=== PATIENT | male | born 1950 | race Caucasian/White ===

== ENCOUNTER 2016-11-03 16:53 | Inpatient (IN) | payer OTHER ==
[2016-11-03 17:07] VITALS: BMI 30.7
[2016-11-03] MEDS ORDERED: dilTIAZem HCL 50 MG/10 ML - 10 ML VIAL ONE ×2 (17:41→18:01)
--- NOTE | 2016-11-03 17:48 | PDOC ---
History of Present Illness - History of Present Illness Initial Comments: 11/03/16 19:00 Patient is a 66 year old male with no known medical hx who is presenting to the ED with several weeks of shortness of breath and dyspnea on exertion. The patient also endorses epigastric pain, orthopnea and leg swelling that began four days ago. Patient denies any other symptoms including fever, chills, chest pain, lightheadedness, palpitations, nausea, vomiting, diarrhea, melena, rectal bleeding, or coughing. <Negar Beltran - Last Filed: 11/03/16 19:00> <Ruben London - Last Filed: 11/03/16 19:57> - General Chief Complaint: Shortness of Breath Stated Complaint: SHORTNESS OF BREATH Time Seen by Provider: 11/03/16 17:35 Past History <Negar Beltran - Last Filed: 11/03/16 19:00> - Past Medical History Anemia: No Asthma: No Cancer: No Cardiac Disorders: No CVA: No COPD: No CHF: No Dementia: No Diabetes: No GI Disorders: No Disorders: No HTN: No Hypercholesterolemia: No Liver Disease: No Seizures: No Thyroid Disease: No Other medical history: DENIES. 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) - Immunization History Td Vaccination: Yes Immunization Up to Date: Yes - Psycho/Social/Smoking Cessation Hx Suicidal Ideation: No Smoking Status: Yes Smoking History: Current every day smoker Have you smoked in the past 12 months: Yes Number of Cigarettes Smoked Daily: 10 Information on smoking cessation initiated: No Hx Alcohol Use: No Drug/Substance Use Hx: No Substance Use Type: None Hx Substance Use Treatment: No <Ruben London - Last Filed: 11/03/16 19:57> - Past Medical History Allergies/Adverse Reactions: Allergies Allergy/AdvReac Type Severity Reaction Status Date / Time Penicillins Allergy Swelling Verified 11/03/16 17:03 Home Medications: Ambulatory Orders NK [No Known Home Medication] 11/03/16 Review of Systems - Review of Systems Comments:: 11/03/16 19:00 CONSTITUTIONAL: No reported: Fever, Chills, Diaphoresis, Generalized Weakness, Malaise, Loss of Appetite HEENT: No reported: Rhinorrhea, Nasal Congestion, Throat Pain, Throat Swelling, Difficulty Swallowing, Mouth Swelling, Ear Pain, Eye Pain, Visual Changes CARDIOVASCULAR: Reported: Lower Extremity Edema No reported: Chest Pain, Syncope, Palpitations, Irregular Heart Rate, Lightheadedness RESPIRATORY: Reported: Shortness of Breath, SOB with Exertion, Orthopnea No reported: Cough, Wheezing, Stridor, Hemoptysis GASTROINTESTINAL: Reported: Epigastric Pain No reported: Abdominal Distension, Nausea, Vomiting, Diarrhea, Constipation, Melena, Hematochezia GENITOURINARY: No reported: Dysuria, Frequency, Urgency, Hesitancy, Flank Pain, Genital Pain MUSCULOSKELETAL: No reported: Myalgia, Arthralgia, Joint Swelling, Back pain, Neck Pain SKIN: No reported: Rash, Itching, Pallor HEMEATOLOGIC/IMMUNOLOGIC: No reported: Easy Bleeding, Easy Bruising, Lymphadenopathy, Frequent infections ENDOCRINE: No reported: Unexplained Weight Gain, Unexplained Weight Loss, Heat Intolerance , Cold Intolerance NEUROLOGIC: No reported: Headache, Focal Weakness, Paresthesias, Vertigo, Lightheadedness, Unsteady Gait, Seizure, Mental Status Changes, Incontinence PSYCHIATRIC: No reported: Anxiety, Depression <Ruby,Negar - Last Filed: 11/03/16 19:00> *Physical Exam - Vital Signs Last Vital Signs Temp Pulse Resp BP Pulse Ox 97.7 F 80 19 131/86 97 11/03/16 17:03 11/03/16 17:03 11/03/16 17:03 11/03/16 17:03 11/03/16 17:03 - Physical Exam Comments: 11/03/16 19:00 GENERAL: The patient is awake, alert, and fully oriented, Nontoxic - in no acute distress. HEAD: Normocephalic, atraumatic. EYES: extraocular movements intact, sclera anicteric, conjunctiva clear. ENT: Normal voice, Moist mucous membranes. NECK: Normal range of motion, supple LUNGS: Diffuse wheezing bilaterally. No rhonchi, no rales. HEART: Tachycardic, rapid irregularly irregular heart rate. No murmur, rub or gallop. ABDOMEN: Soft, nontender, normoactive bowel sounds. No guarding, no rebound.No CVA tenderness EXTREMITIES: Normal range of motion, pitting edema to the lower extremities bilaterally. No clubbing or cyanosis. No cords, erythema, or tenderness. NEUROLOGICAL: No facial assymetry, Normal speech, PSYCH: Normal mood, normal affect. SKIN: Warm, Dry, normal turgor, <Negar Beltran - Last Filed: 11/03/16 19:00> - Vital Signs Last Vital Signs Temp Pulse Resp BP Pulse Ox 97.7 F 80 19 131/86 97 11/03/16 17:03 11/03/16 17:03 11/03/16 17:03 11/03/16 17:03 11/03/16 17:03 <Ruben London - Last Filed: 11/03/16 19:57> Heart Score/ECG Review - ECG Impressions Comment:: 11/03/16 19:55 Twelve-lead EKG was performed and reviewed by me. Irregular, rate of [address] changes suggestive of acute ischemia <Ruben London - Last Filed: 11/03/16 19:57> ED Treatment Course - LABORATORY CBC & Chemistry Diagram: 11/03/16 17:49 11/03/16 18:40 - ADDITIONAL ORDERS Additional order review: Laboratory Results 11/03/16 17:49 INR 1.12 11/03/16 17:49 RBC 4.70 MCV 100.8 H MCHC 33.1 RDW 15.2 MPV 9.2 Neutrophils % 63.9 Lymphocytes % 24.5 Monocytes % 9.2 Eosinophils % 1.3 Basophils % 1.1 <Negar Beltran - Last Filed: 11/03/16 19:00> - LABORATORY CBC & Chemistry Diagram: 11/03/16 17:49 11/03/16 18:40 - RADIOLOGY Radiology Studies Ordered: Category Date Time Status CHEST X-RAY PORTABLE* [RAD] Stat Radiology 11/03/16 17:39 Ordered <Ruben London - Last Filed: 11/03/16 19:57> Medical Decision Making - Medical Decision Making 11/03/16 17:58 66y M no known medical problems presents with sob/espinoza for several weeks, mild epigastric pressure, found to have HR of 155 in triage in rapid afib pt placed in monitoring tech upon arrival, pt given 20mgof diltiizem with improvment of HR to 138, will gie another bolus of 20mg 11/03/16 18:52 case d/w dr. carmichael - pts HR currently rnaging between 110-130, avg around 120, bp 99/69. pt with wheezing and chronic smoking history - ?undiagnosed COPD - concern for usig BB will give PO chaser of dilitazem 30mg PO pts CHADS-2VASC score of 0 - will give ASA, no indication for further AC CRITICAL CARE DOCUMENTATION: I spent ~35 minutes of Critical Care time, excluding separately billable procedures, involving high complexity decision making to assess, manipulate and support vital system function(s) to treat single or multiple vital organ system failure and/or to prevent further life threatening deterioration of the patient' s condition. caes dw dr. duval agreed with telemetry admission for further management of afib Case discussed in detail with admitting physician including history, physical exam and ancillary studies. Admitting physician has assumed care for the patient, will follow all pending diagnostics and will complete the evaluation and treatment. <Ruben London - Last Filed: 11/03/16 19:57> *DC/Admit/Observation/Transfer - Attestations Scribe Attestion: 11/03/16 19:01 Documentation prepared by Negar Beltran, acting as chief medical physicist for Ruben London MD. <Negar Beltran - Last Filed: 11/03/16 19:00> - Discharge Dispostion Admit: Yes <Ruben London - Last Filed: 11/03/16 19:57> Diagnosis at time of Disposition: Atrial fibrillation Qualifiers: Atrial fibrillation type: unspecified Qualified Code(s): I48.91 - Unspecified atrial fibrillation - Discharge Dispostion Condition at time of disposition: Guarded
[2016-11-03 18:03] LABS: BASOPHIL 1.1 % (0-2.0); EOSINOPHIL 1.3 % (0-4.5); MCH 33.4 pg (25.7-33.7); MCHC 33.1 g/dl (32.0-35.9); MEAN CELL VOLUME 100.8 fl (80-96); MEAN PLT VOLUME 9.2 fl (7.5-11.1); NEUTROPHILS 63.9 % (42.8-82.8); PLATELET COUNT 219 K/MM3 (134-434); RDW 15.2 % (11.9-15.9); WHITE BLOOD COUNT 11.2 K/mm3 (4.0-10.0)
[2016-11-03 18:19] LABS: INR 1.12 (0.82-1.09); PROTHROMBIN TIME (PATIENT) 12.3 SEC (9.98-11.88)
[2016-11-03] MEDS ORDERED: dilTIAZem HCL 50 MG/10 ML - 10 ML VIAL IVPUSH ONE ×3 (18:21→23:11)
[2016-11-03] MEDS ORDERED: dilTIAZem HCL 30 MG TABLET (FP) PO ONE (18:50)
[2016-11-03] MEDS ORDERED: ASPIRIN 81 MG CHEWABLE TABLETS PO ONE (18:51)
[2016-11-03 18:55] LABS: ALBUMIN 3.6 g/dl (3.4-5.0); ANION GAP 10 (8-16); BILIRUBIN,TOTAL 0.8 mg/dL (0.2-1.0); CALCIUM 8.8 mg/dL (8.5-10.1); CO2 26 mmol/L (21-32); CREATININE 0.8 mg/dL (0.7-1.3); GLUCOSE,RANDOM 95 mg/dL (74-106); SGOT/AST 38 U/L (15-37); SGPT/ALT 67 U/L (12-78); TOT PROT 6.2 g/dl (6.4-8.2)
[2016-11-03 18:58] LABS: ALK PHOS 65 U/L (45-117); TROPONIN I 0.02 ng/ml (0.00-0.05)
[2016-11-03] MEDS ORDERED: dilTIAZem HCL 30 MG TABLET (FP) ONE ×2 (19:14→22:34)
[2016-11-03] MEDS ORDERED: ASPIRIN 81 MG CHEWABLE TABLETS ONE (19:14)
--- NOTE | 2016-11-03 21:05 | HP ---
CHIEF COMPLAINT: SOB PCP: No PCP HISTORY OF PRESENT ILLNESS: 66 y/o M w/no PMH presents to ER with c/o exertional dyspnea over last few weeks. Pt states he has trouble walking even 40 feet and this is the first time this has happened. He also has difficulty laying flat over the last few weeks and sleeps at about a 45 degree angle. He also developed a cough with yellow/ whitish sputum production over the last few weeks but attributed to sick contacts (his boss and a co-worker were sick). The symptoms have stayed the same over the last few weeks and haven't worsened or improved. Over the last 4 days he has also noted some epigastric pain and leg swelling. He denies any CP , N/V/F/C, palpitations, heart racing, light-headedness, dizziness, diarrhea, constipation, dysuria, acute change in vision, or diplopia. He had a pre-op visit in April 2016 (w/Dr. Delgado) for L shoulder rotator cuff repair and had an EKG done at that time at which point he was not told of any heart rhythm abnormalities. He does not follow with any doctors otherwise. ER course was notable for: (1) IV diltiazem, PO diltiazem, EKG, ASA (2) (3) PAST MEDICAL HISTORY: no PMH PAST SURGICAL HISTORY: L rotator cuff repari 05/2016 Social History: Smoking: daily, 10 cigarettes per day at this time but has smoked more in the past Alcohol: denies Drugs: denies Family History: Father - cardiac stent placed at age 89, still alive Allergies Penicillins Allergy (Verified 11/03/16 17:03) Swelling HOME MEDICATIONS: Home Medications Medication Instructions Recorded NK [No Known Home Medication] 11/03/16 REVIEW OF SYSTEMS CONSTITUTIONAL: Absent: fever, chills, diaphoresis, generalized weakness, malaise, loss of appetite, weight change HEENT: Absent: rhinorrhea, nasal congestion, throat pain, throat swelling, difficulty swallowing, mouth swelling, ear pain, eye pain, visual changes CARDIOVASCULAR: Absent: chest pain, syncope, palpitations, irregular heart rate, lightheadedness , peripheral edema RESPIRATORY: dyspnea on exertion, orthopnea, cough Absent: shortness of breath, wheezing, stridor, hemoptysis GASTROINTESTINAL: abd pain Absent: abdominal pain, abdominal distension, nausea, vomiting, diarrhea, constipation, melena, hematochezia GENITOURINARY: Absent: dysuria, frequency, urgency, hesitancy, hematuria, flank pain, genital pain MUSCULOSKELETAL: Absent: myalgia, arthralgia, joint swelling, back pain, neck pain SKIN: Absent: rash, itching, pallor HEMATOLOGIC/IMMUNOLOGIC: Absent: easy bleeding, easy bruising, lymphadenopathy, frequent infections ENDOCRINE: Absent: unexplained weight gain, unexplained weight loss, heat intolerance, cold intolerance NEUROLOGIC: Absent: headache, focal weakness or paresthesias, dizziness, unsteady gait, seizure, mental status changes, bladder or bowel incontinence PSYCHIATRIC: Absent: anxiety, depression, suicidal or homicidal ideation, hallucinations. PHYSICAL EXAMINATION GENERAL: Awake, alert, and fully oriented, in no acute distress. HEAD: Normal with no signs of trauma. EYES: extraocular movements intact, sclera anicteric, conjunctiva clear. No lid lag. EARS, NOSE, THROAT: Ears normal, nares patent, oropharynx clear without exudates. Moist mucous membranes. NECK: Normal range of motion LUNGS: L base mild wheezing. R base diminished breath sounds. HEART: Tachycardic, irregularly irregular, no murmurs appreciated. ABDOMEN: Soft, nontender, not distended, normoactive bowel sounds, no guarding, no rebound, no masses. No hepatomegaly or splenomegaly. MUSCULOSKELETAL: Normal range of motion at all joints. No bony deformities or tenderness. UPPER EXTREMITIES: 2+ pulses, warm, well-perfused. No cyanosis. No clubbing. Trace pitting edema. LOWER EXTREMITIES: 2+ pulses, warm, well-perfused. No calf tenderness. 2+ pitting edema. NEUROLOGICAL: Normal speech. Gait not observed. PSYCHIATRIC: Cooperative. Good eye contact. Appropriate mood and affect. SKIN: Warm, dry, normal turgor, no rashes or lesions noted, normal capillary refill. CBCD WBC 8.6 K/mm3 (4.0-10.0) 11/04/16 00:50 RBC 4.31 M/mm3 (4.00-5.60) 11/04/16 00:50 Hgb 14.4 GM/dL (11.7-16.9) 11/04/16 00:50 Hct 43.1 % (35.4-49) 11/04/16 00:50 MCV 100.1 fl (80-96) H 11/04/16 00:50 MCHC 33.3 g/dl (32.0-35.9) 11/04/16 00:50 RDW 15.2 % (11.9-15.9) 11/04/16 00:50 Plt Count 180 K/MM3 (134-434) 11/04/16 00:50 MPV 9.2 fl (7.5-11.1) 11/04/16 00:50 CMP Sodium 140 mmol/L (136-145) 11/03/16 18:40 Potassium 4.6 mmol/L (3.5-5.1) 11/03/16 18:40 Chloride 104 mmol/L (98-107) 11/03/16 18:40 Carbon Dioxide 26 mmol/L (21-32) 11/03/16 18:40 Anion Gap 10 (8-16) 11/03/16 18:40 BUN 17 mg/dL (7-18) 11/03/16 18:40 Creatinine 0.8 mg/dL (0.7-1.3) 11/03/16 18:40 Creat Clearance w eGFR > 60 (>60) 11/03/16 18:40 Random Glucose 95 mg/dL (74-106) 11/03/16 18:40 Calcium 8.8 mg/dL (8.5-10.1) 11/03/16 18:40 Total Bilirubin 0.8 mg/dL (0.2-1.0) 11/03/16 18:40 AST 38 U/L (15-37) H 11/03/16 18:40 ALT 67 U/L (12-78) 11/03/16 18:40 Alkaline Phosphatase 65 U/L (45-117) 11/03/16 18:40 Total Protein 6.2 g/dl (6.4-8.2) L 11/03/16 18:40 Albumin 3.6 g/dl (3.4-5.0) 11/03/16 18:40 CARDIAC ENZYMES Creatine Kinase 121 IU/L (39-308) 11/03/16 18:40 Troponin I 0.02 ng/ml (0.00-0.05) 11/03/16 18:40 Urine Test Results Urine Color Dkyellow 11/03/16 22:37 Urine Appearance Clear 11/03/16 22:37 Urine pH 5.0 (5.0-8.0) 11/03/16 22:37 Ur Specific [place] 1.027 (1.001-1.035) 11/03/16 22:37 Urine Protein 1+ (NEGATIVE) H 11/03/16 22:37 Urine Glucose (UA) Negative (NEGATIVE) 11/03/16 22:37 Urine Ketones Negative (NEGATIVE) 11/03/16 22:37 Urine Blood Negative (NEGATIVE) 11/03/16 22:37 Urine Nitrite Negative (NEGATIVE) 11/03/16 22:37 Urine Bilirubin Negative (NEGATIVE) 11/03/16 22:37 Ur Leukocyte Esterase Negative (NEGATIVE) 11/03/16 22:37 Urine RBC 5 /hpf (0-3) 11/03/16 22:37 Urine WBC 1 /hpf (3-5) 11/03/16 22:37 Ur Epithelial Cells Rare /hpf (FEW) 11/03/16 22:37 Urine Mucus Moderate 11/03/16 22:37 Imaging: CXR: R costophrenic angle blunted, possible pleural effusion. L costophrenic angle mildly blunted. Fullness in hilum. EKG: A-fib @ 155 bpm, no st segment changes noted. Active Medications Diltiazem HCl (Cardizem -) 30 mg PO QID [facility] Last Admin: 11/03/16 22:35 Dose: 30 mg Heparin Sodium (Porcine) (Heparin -) 1,000 unit IVPUSH PRN PRN PRN Reason: Heparin Heparin Sodium (Porcine) (Heparin -) 5,000 unit IVPUSH PRN PRN PRN Reason: Heparin Heparin Sodium/Dextrose (Heparin Infusion -) 500 mls @ 20 mls/hr IVPB TITR RY ; 1,000 UNITS/HR PRN Reason: Protocol Last Admin: 11/04/16 01:40 Dose: 20 mls/hr Metoprolol Tartrate (Lopressor -) 25 mg PO BID [facility] Last Admin: 11/04/16 00:34 Dose: 25 mg Metoprolol Tartrate (Lopressor Injection -) 5 mg IVPUSH Q4H PRN PRN Reason: HYPERTENSION ASSESSMENT/PLAN: 66 y/o M w/no PMH presents to ER with c/o exertional dyspnea over last few weeks. Admitted to [facility] for new onset a-fib. -New onset a-fib w/RVR -ASA given in ER, diltiazem 20mg IV x2 + diltiazem 30 mg po given in ER + given 30 mg po and 20 mg IV after being brought up to tele. -Cardizem 30 mg PO qid -Metoprolol 25 mg po bid, lopressor 5mg ivp q4h prn as per cardio -heparin drip as per cardio -Cardio Consulted -Echo ordered, f/u EKG in AM -[id number] score 0; TSH wnl -Previous EKG on 05/06/2016 showed: SINUS HUY w/SINUS ARRHYTHMIA, POSSIBLE L ATRIAL ENLARGEMENT -Wheezing and cough secondary to CHF vs COPD -CXR shows congestive changes and r pleural effusion -Lasix 20mg IV once ordered -f/u ECHO -DVT ppx -on heparin drip -FEN -No fluids -electrolytes wnl -cardiac diet Problem List - Problem (1) Atrial fibrillation Code(s): I48.91 - UNSPECIFIED ATRIAL FIBRILLATION Qualifiers: Atrial fibrillation type: unspecified Qualified Code(s): I48.91 - Unspecified atrial fibrillation Visit type - Emergency Visit Emergency Visit: Yes ED Registration Date: 11/03/16 Care time: The patient presented to the Emergency Department on the above date and was hospitalized for further evaluation of their emergent condition. - New Patient This patient is new to me today: Yes Date on this admission: 11/04/16 - Critical Care Critical Care patient: No
[2016-11-03] MEDS ORDERED: FUROSEMIDE 40 MG/4 ML INJECTABLE VIAL IVPB ONE (21:22)
[2016-11-03] MEDS ORDERED: FUROSEMIDE 40 MG/4 ML INJECTABLE VIAL ONE (21:51)
[2016-11-03] MEDS: dilTIAZem HCL 30 MG TABLET (FP) PO SCH (22:35)
[2016-11-03 23:20] LABS: URINE APPEARANCE CLEAR; URINE BILIRUBIN NEGATIVE (NEGATIVE); URINE BLOOD NEGATIVE (NEGATIVE); URINE COLOR DKYELLOW; URINE GLUCOSE (UA) NEGATIVE (NEGATIVE); URINE KETONE NEGATIVE (NEGATIVE); URINE LEUK ESTERASE NEGATIVE (NEGATIVE); URINE NITRITE NEGATIVE (NEGATIVE); URINE UROBILINOGEN 2.0 E.U/dl E.U./dl (0.2-1.0)
[2016-11-03 23:21] LABS: URINE PROTEIN 1+ (NEGATIVE)
[2016-11-03 23:23] LABS: CALCIUM OXALATE CRYSTALS FEW /hpf (NONE SEEN); URINE HYALINE CAST 3 /lpf; URINE MUCUS MODERATE; URINE RBC 5 /hpf (0-3); URINE WBC 1 /hpf (3-5)
--- NOTE | 2016-11-03 23:51 | PN ---
<Marko Green - Last Filed: 11/04/16 02:44> Teaching Attending Note ATTENDING PHYSICIAN STATEMENT I saw and evaluated the patient. I reviewed the resident's note and discussed the case with the resident. I agree with the resident's findings and plan as documented. SUBJECTIVE: The patient is a 66 year old male with no known medical history who presented to the Emergency Department with several weeks of dyspnea on exertion. The patient reported that he is unable to walk 40 feet without becoming short of breath. The patient endorsed associated epigastric pain, bilateral lower extremity edema for 4 days, and orthopnea, productive cough with yellow-clear sputum for several weeks. The patient works as a communication equipment mechanic and noted that he has had recent sick contacts at his workplace. Patient denied fever, chills, chest pain, lightheadedness, dizziness, palpitations, nausea, vomiting, diarrhea, constipation, acute changes in vision or any other symptoms at this time. The patient noted that he has had a normal appetite as well as normal bowel movements. He does not have a PCP but most recently saw Dr. Delgado for a pre- operative appointment. PAST MEDICAL HISTORY: No significant history reported PAST SURGICAL HISTORY: Shoulder surgery 05/2016 FAMILY HISTORY: Father s/p stent at age 89. Mother from cancer SOCIAL HISTORY: Current smoker 0.5 ppd (over 45 years). Former drinker (quit 15 years ago) MEDICATIONS: Reviewed ALLERGIES: As per nursing notes OBJECTIVE: Vital Signs: Last Vital Signs Temp Pulse Resp BP Pulse Ox 98.1 F 135 H 20 106/62 96 11/03/16 23:42 11/04/16 00:40 11/04/16 00:40 11/04/16 00:40 11/03/16 23:42 Physical Exam: GENERAL: Awake, alert, and fully oriented, in no acute distress HEENT: Atraumatic. PERRLA, EOMI. Moist mucosa. No JVD LUNGS: (+) Breath sounds diminished, bilateral wheezing. speaks full sentences, HEART: (+) Irregular rhythm, tachycardia. Normal S1 and S2, no murmurs, rubs or gallops, peripheral pulses normal and equal bilaterally. ABDOMEN: Soft, nontender, normoactive bowel sounds. No guarding, no rebound. No masses EXTREMITIES: (+) Legs 2+ pitting edema up to knees trace pitting edema upper extremities. Normal inspection, Normal range of motion, No clubbing or cyanosis. NEUROLOGICAL: Cranial nerves II through XII grossly intact. Normal speech, normal gait, no focal sensorimotor deficits SKIN: Warm, Dry, normal turgor, no rashes or lesions noted. Labs: CBCD WBC 8.6 K/mm3 (4.0-10.0) 11/04/16 00:50 RBC 4.31 M/mm3 (4.00-5.60) 11/04/16 00:50 Hgb 14.4 GM/dL (11.7-16.9) 11/04/16 00:50 Hct 43.1 % (35.4-49) 11/04/16 00:50 MCV 100.1 fl (80-96) H 11/04/16 00:50 MCHC 33.3 g/dl (32.0-35.9) 11/04/16 00:50 RDW 15.2 % (11.9-15.9) 11/04/16 00:50 Plt Count 180 K/MM3 (134-434) 11/04/16 00:50 MPV 9.2 fl (7.5-11.1) 11/04/16 00:50 CMP Sodium 140 mmol/L (136-145) 11/03/16 18:40 Potassium 4.6 mmol/L (3.5-5.1) 11/03/16 18:40 Chloride 104 mmol/L (98-107) 11/03/16 18:40 Carbon Dioxide 26 mmol/L (21-32) 11/03/16 18:40 Anion Gap 10 (8-16) 11/03/16 18:40 BUN 17 mg/dL (7-18) 11/03/16 18:40 Creatinine 0.8 mg/dL (0.7-1.3) 11/03/16 18:40 Creat Clearance w eGFR > 60 (>60) 11/03/16 18:40 Calcium 8.8 mg/dL (8.5-10.1) 11/03/16 18:40 Total Bilirubin 0.8 mg/dL (0.2-1.0) 11/03/16 18:40 AST 38 U/L (15-37) H 11/03/16 18:40 ALT 67 U/L (12-78) 11/03/16 18:40 Alkaline Phosphatase 65 U/L (45-117) 11/03/16 18:40 Total Protein 6.2 g/dl (6.4-8.2) L 11/03/16 18:40 Albumin 3.6 g/dl (3.4-5.0) 11/03/16 18:40 Imaging: Chest X-ray Impression: No official read. Vascular congestion and possible small effusions. ASSESSMENT AND PLAN : The patient is a 66 year old male with no known medical history who presented to the Emergency Department with several weeks of dyspnea on exertion. 1. New onset AFIB with RVR -Diltiazem (given 20 mg IV x2 and 30 mg PO in ED) -Diltiazem start 30 mg PO x4 daily -CHADS2 VASC0 Aspirin given in ER, continue 81 mg per day -Serial troponins -ECHO -Cardiology consult 2. Possible Acute diastolic heart failure -Lasix 20mg IV x1 -Chest X-ray in AM -ECHO -Rate control Admit to tele. Documentation prepared by Marko Green, acting as medical attendant for Dr. Kody Moise MD. <Kody Moise - Last Filed: 11/04/16 02:59> Teaching Attending Note Name of Resident: Jose Rodriguez ATTENDING PHYSICIAN STATEMENT I saw and evaluated the patient. I reviewed the resident's note and discussed the case with the resident. I agree with the resident's findings and plan as documented.
--- NOTE | 2016-11-04 00:15 | CON.CARD ---
Consult Consult Specialty:: cardiology Reason for Consultation:: new-onset AF - History of Present Illness History of Present Illness: Patient is a 66 year old male with no known medical hx who is presenting to the ED with several weeks of shortness of breath, productive cough, and dyspnea on exertion. The patient also endorses epigastric pain, orthopnea and leg swelling that began four days ago. Patient denies any other symptoms including fever, chills, chest pain, lightheadedness, palpitations, nausea, vomiting, diarrhea, melena, or rectal bleed. - History Source History Provided By: Patient, Medical Record Limitations to Obtaining History: No Limitations - Past Medical History Cardio/Vascular: Yes: AFIB, CHF (systolic) Renal/: No: Renal Failure - Past Surgical History Additional Surgical History: right leg calf wound when young; + scar - Alcohol/Substance Use Hx Alcohol Use: No - Smoking History Smoking history: Current every day smoker Have you smoked in the past 12 months: Yes Aproximately how many cigarettes per day: 10 Home Medications - Allergies Allergies/Adverse Reactions: Allergies Allergy/AdvReac Type Severity Reaction Status Date / Time Penicillins Allergy Swelling Verified 11/03/16 17:03 - Home Medications Home Medications: Ambulatory Orders NK [No Known Home Medication] 11/03/16 Family Disease History - Family Disease History Family History: Denies Review of Systems - Review of Systems Eyes: reports: No Symptoms HENT: reports: No Symptoms Neck: reports: No Symptoms Cardiovascular: reports: No Symptoms Respiratory: reports: SOB on Exertion Musculoskeletal: reports: Muscle Weakness Neurological: reports: No Symptoms Psychiatric: reports: No Symptoms - Risk Factors Known Risk Factors: Yes: Age, Gender, Physical Inactivity, Smoking, Other ( severe systolic CHF) Vital Signs: Vital Signs Temperature 98.1 F 11/03/16 23:42 Pulse Rate 150 H 11/03/16 23:42 Respiratory Rate 18 11/03/16 23:42 Blood Pressure 117/68 11/03/16 23:42 O2 Sat by Pulse Oximetry (%) 96 11/03/16 23:42 Constitutional: Yes: No Distress Eyes: Yes: WNL HENT: Yes: WNL Neck: Yes: WNL Respiratory: Yes: Regular Gastrointestinal: Yes: Soft Renal/: No: Anuria Cardiovascular: Yes: Tachycardia, Pulse Irregular JVD: No Carotid Bruit: No PMI: Displaced Heart Sounds: Yes: S1 (changes in intensity) Murmur: Yes: Grade 2 Musculoskeletal: Yes: Muscle Weakness Extremities: Yes: Cool Edema: Yes Edema: LLE: 2+, RLE: 2+ Peripheral Pulses WNL: Yes Integumentary: Yes: WNL Neurological: Yes: WNL Psychiatric: Yes: WNL - Other Data Labs, Other Data: INR, PTT INR 1.12 (0.82-1.09) 11/03/16 17:49 Echo: Pending Imaging - Results Chest X-ray: Image Reviewed (no acute pathology) EKG: Image Reviewed (AF with RVR) Problem List - Problems (1) Atrial fibrillation Assessment/Plan: Pt has received a total of 60 mg diltiazem IVP and 60 mg diltiazem PO over the past several hours. HR now fluctuates from high 90s to 150+ bpm with virtually no exertion. Will start metoprolol tartrate PO 25 mg bid, and metoprolol 5 mg IVP prn (no hx bronchial asthma). Start heparin IV per protocol. Discontinue ASA (increased bleeding potential with heparin) until more history regarding cardiac risks is obtained. ECHO for LVEF, chamber sizes, valve status. Serial TNI (initial is < 0.02). TSH WNL. Telemetry; EKG in am. Code(s): I48.91 - UNSPECIFIED ATRIAL FIBRILLATION Qualifiers: Atrial fibrillation type: unspecified Qualified Code(s): I48.91 - Unspecified atrial fibrillation
[2016-11-04] MEDS ORDERED: METOPROLOL TARTRATE 5 MG/5 ML VIAL IVPUSH PRN (00:17)
[2016-11-04] MEDS ORDERED: HEPARIN NA (PORCINE) 5,000 UNITS/ML 1ML VIAL SQ ONE (00:30)
[2016-11-04] MEDS ORDERED: HEPARIN NA (PORCINE) 5,000 UNITS/ML 1ML VIAL IVPUSH PRN ×2 (00:33)
[2016-11-04] MEDS: METOPROLOL TARTRATE 25 MG TABLET (FP) PO SCH ×4 (00:34→21:45)
[2016-11-04 01:16] LABS: MCH 33.3 pg (25.7-33.7); MCHC 33.3 g/dl (32.0-35.9); MEAN CELL VOLUME 100.1 fl (80-96); MEAN PLT VOLUME 9.2 fl (7.5-11.1); PLATELET COUNT 180 K/MM3 (134-434); RDW 15.2 % (11.9-15.9); WHITE BLOOD COUNT 8.6 K/mm3 (4.0-10.0)
[2016-11-04] MEDS: HEPARIN INFUSION - 500 ML IVPB SCH (01:40)
[2016-11-04 01:51] LABS: INR 1.13 (0.82-1.09); PROTHROMBIN TIME (PATIENT) 12.5 SEC (9.98-11.88)
[2016-11-04 01:54] LABS: ACTIVATED PTT 31.2 SECONDS (26.9-34.4)
[2016-11-04 08:14] LABS: MCH 33.5 pg (25.7-33.7); MCHC 33.2 g/dl (32.0-35.9); MEAN CELL VOLUME 101.2 fl (80-96); MEAN PLT VOLUME 9.1 fl (7.5-11.1); PLATELET COUNT 184 K/MM3 (134-434); RDW 15.3 % (11.9-15.9); WHITE BLOOD COUNT 8.1 K/mm3 (4.0-10.0)
[2016-11-04 08:32] LABS: INR 1.12 (0.82-1.09); PROTHROMBIN TIME (PATIENT) 12.3 SEC (9.98-11.88)
[2016-11-04 08:33] LABS: MAGNESIUM 2.2 mg/dL (1.8-2.4)
[2016-11-04 08:35] LABS: ACTIVATED PTT 62.2 SECONDS (26.9-34.4)
[2016-11-04] MEDS: dilTIAZem HCL 30 MG TABLET (FP) PO SCH (09:20)
--- NOTE | 2016-11-04 09:26 | PN ---
Physical Exam: SUBJECTIVE: Patient seen and examined on tele. He denies SOB or palpitations at this time. He has in intermittent dry cough. Events: - HR improved, however uncontrolled; fluctuating - Metoprolol 5mg x1 this AM - Period of hypotension this AM per RN OBJECTIVE: Vital Signs Period Temp Pulse Resp BP Sys/Mccray Pulse Ox Last 24 Hr 97.6 F-98.1 F 74-150 18-20 102-117/53-86 96-98 PE Neuro: alert, awake, cn 2-12intact Pulm: R base crackles diminished, left clear, + NC CV: s1 s2 irregular rate and rhythm Abd: s nt nd + bs Ext: + 2 pitting edema, warm CBCD WBC 8.1 K/mm3 (4.0-10.0) 11/04/16 05:35 RBC 4.37 M/mm3 (4.00-5.60) 11/04/16 05:35 Hgb 14.7 GM/dL (11.7-16.9) 11/04/16 05:35 Hct 44.2 % (35.4-49) 11/04/16 05:35 MCV 101.2 fl (80-96) H 11/04/16 05:35 MCHC 33.2 g/dl (32.0-35.9) 11/04/16 05:35 RDW 15.3 % (11.9-15.9) 11/04/16 05:35 Plt Count 184 K/MM3 (134-434) 11/04/16 05:35 MPV 9.1 fl (7.5-11.1) 11/04/16 05:35 CMP Sodium 142 mmol/L (136-145) 11/04/16 05:35 Potassium 4.8 mmol/L (3.5-5.1) 11/04/16 05:35 Chloride 104 mmol/L (98-107) 11/04/16 05:35 Carbon Dioxide 29 mmol/L (21-32) 11/04/16 05:35 Anion Gap 9 (8-16) 11/04/16 05:35 BUN 19 mg/dL (7-18) H 11/04/16 05:35 Creatinine 1.0 mg/dL (0.7-1.3) D 11/04/16 05:35 Creat Clearance w eGFR > 60 (>60) 11/03/16 18:40 Calcium 9.0 mg/dL (8.5-10.1) 11/04/16 05:35 Total Bilirubin 0.8 mg/dL (0.2-1.0) 11/03/16 18:40 AST 38 U/L (15-37) H 11/03/16 18:40 ALT 67 U/L (12-78) 11/03/16 18:40 Alkaline Phosphatase 65 U/L (45-117) 11/03/16 18:40 Total Protein 6.2 g/dl (6.4-8.2) L 11/03/16 18:40 Albumin 3.6 g/dl (3.4-5.0) 11/03/16 18:40 11/03/16 11/04/16 11/04/16 17:49 00:50 05:35 INR PTT (Actin FS) Troponin I 0.02 < 0.02 Triglycerides Cholesterol Total LDL Cholesterol HDL Cholesterol TSH 1.83 11/04/16 11/04/16 05:35 07:21 INR 1.12 PTT (Actin FS) 62.2 H D Troponin I Triglycerides 74 Cholesterol 145 Total LDL Cholesterol 93 HDL Cholesterol 46 TSH Active Medications Generic Name Dose Route Start Last Admin Trade Name Freq PRN Reason Stop Dose Admin Diltiazem HCl 30 mg 11/03/16 22:00 11/03/16 22:35 Cardizem - PO 30 mg QID RY Administration Heparin Sodium (Porcine) 1,000 unit 11/04/16 00:33 Heparin - IVPUSH PRN PRN Heparin Heparin Sodium (Porcine) 5,000 unit 11/04/16 00:33 Heparin - IVPUSH PRN PRN Heparin Heparin Sodium/Dextrose 500 mls @ 20 mls/hr 11/04/16 00:45 11/04/16 01:40 Heparin Infusion - IVPB 20 mls/hr TITR RY Administration Protocol 1,000 UNITS/HR Metoprolol Tartrate 25 mg 11/04/16 00:30 11/04/16 08:19 Lopressor - PO 25 mg BID RY Administration Metoprolol Tartrate 5 mg 11/04/16 00:17 11/04/16 06:45 Lopressor Injection - IVPUSH 5 mg Q4H PRN Administration HYPERTENSION Assessment: 66 year old male with no known medical history admitted with several weeks of dyspnea on exertion found to have new onset A fib w/ RVR. 1. New onset AFIB with RVR - r/o SD; serial trops negative - ECHO today - Continue Metoprolol 25mg BID, 5mg IVP prn - Continue diltiazem 30mg PO q4h - Heparin gtt - Hgb a1c in AM - Cardiology following 2. Possible Acute diastolic heart failure - CXR with R base effusion/infiltrate - No infectious signs at this time - Incentive spirometry - ECHO today - Meds as above 3. DVT - heparin gtt - PT Visit type - Emergency Visit Emergency Visit: Yes ED Registration Date: 11/03/16 Care time: The patient presented to the Emergency Department on the above date and was hospitalized for further evaluation of their emergent condition. - New Patient This patient is new to me today: Yes Date on this admission: 11/04/16 - Critical Care Critical Care patient: No
[2016-11-04] MEDS ORDERED: ASPIRIN COATED 81 MG TABLET.EC PO SCH (10:00)
--- NOTE | 2016-11-04 11:20 | EKG ---
Test Reason : Blood Pressure : / mmHG Vent. Rate : 155 BPM Atrial Rate : 147 BPM P-R Int : 000 ms QRS Dur : 088 ms QT Int : 252 ms P-R-T Axes : 000 017 074 degrees QTc Int : 404 ms ATRIAL FIBRILLATION WITH RAPID VENTRICULAR RESPONSE NONSPECIFIC T WAVE ABNORMALITY ABNORMAL ECG WHEN COMPARED WITH ECG OF 07-JUL-2004 20:30, ATRIAL FIBRILLATION HAS REPLACED SINUS RHYTHM VENT. RATE HAS INCREASED BY 96 BPM NON-SPECIFIC CHANGE IN ST SEGMENT IN LATERAL LEADS NONSPECIFIC T WAVE ABNORMALITY NOW EVIDENT IN ANTEROLATERAL LEADS Confirmed by OCHOA ALBRIGHT, JOSE ELIAS ([id number]) on 11/04/2016 11:19:51 AM Referred By: Confirmed By:JOSE ELIAS PACKER MD
--- NOTE | 2016-11-04 11:35 | PN ---
Progress Note, Physician History of Present Illness: Patient is a 66 year old male with no known medical hx who is presenting to the ED with several weeks of shortness of breath, productive cough, and dyspnea on exertion. The patient also endorses epigastric pain, orthopnea and leg swelling that began four days ago. Patient denies any other symptoms including fever, chills, chest pain, lightheadedness, palpitations, nausea, vomiting, diarrhea, melena, or rectal bleed. - Current Medication List Current Medications: Active Medications Diltiazem HCl (Cardizem -) 30 mg PO QID [facility] Last Admin: 11/04/16 09:20 Dose: 30 mg Heparin Sodium (Porcine) (Heparin -) 1,000 unit IVPUSH PRN PRN PRN Reason: Heparin Heparin Sodium (Porcine) (Heparin -) 5,000 unit IVPUSH PRN PRN PRN Reason: Heparin Heparin Sodium/Dextrose (Heparin Infusion -) 500 mls @ 20 mls/hr IVPB TITR RY ; 1,000 UNITS/HR PRN Reason: Protocol Last Admin: 11/04/16 01:40 Dose: 20 mls/hr Metoprolol Tartrate (Lopressor -) 25 mg PO BID RY Last Admin: 11/04/16 08:19 Dose: 25 mg Metoprolol Tartrate (Lopressor Injection -) 5 mg IVPUSH Q4H PRN PRN Reason: HYPERTENSION Last Admin: 11/04/16 06:45 Dose: 5 mg - Objective Vital Signs: Vital Signs Temperature 97.7 F 11/04/16 06:00 Pulse Rate 128 H 11/04/16 06:45 Respiratory Rate 20 11/04/16 06:00 Blood Pressure 110/53 11/04/16 06:45 O2 Sat by Pulse Oximetry (%) 96 11/03/16 23:42 Eyes: Yes: WNL, Conjunctiva Clear, EOM Intact HENT: Yes: WNL, Atraumatic, Normocephalic Neck: Yes: WNL, Supple, Trachea Midline Cardiovascular: Yes: Pulse Irregular Respiratory: Yes: WNL, Regular, CTA Bilaterally Gastrointestinal: Yes: WNL, Normal Bowel Sounds Genitourinary: Yes: WNL Musculoskeletal: Yes: WNL Extremities: Yes: WNL Edema: No Integumentary: Yes: WNL Neurological: Yes: WNL, Alert, Oriented ...Motor Strength: WNL Psychiatric: Yes: WNL Labs: CBC, BMP 11/04/16 05:35 11/04/16 05:35 INR, PTT INR 1.12 (0.82-1.09) 11/04/16 07:21 Problem List - Problems (1) Atrial fibrillation Code(s): I48.91 - UNSPECIFIED ATRIAL FIBRILLATION Qualifiers: Atrial fibrillation type: unspecified Qualified Code(s): I48.91 - Unspecified atrial fibrillation Assessment/Plan af rvr r/o chf ? etoh abuse Plan increase cardizem to 60 q 6 h cont metoprolol cont ac echo pending
--- NOTE | 2016-11-04 13:27 | EKG ---
Test Reason : Blood Pressure : / mmHG Vent. Rate : 145 BPM Atrial Rate : 312 BPM P-R Int : 000 ms QRS Dur : 090 ms QT Int : 316 ms P-R-T Axes : 000 032 112 degrees QTc Int : 490 ms ATRIAL FIBRILLATION WITH RAPID VENTRICULAR RESPONSE NONSPECIFIC T WAVE ABNORMALITY ABNORMAL ECG WHEN COMPARED WITH ECG OF 03-NOV-2016 17:18, NO SIGNIFICANT CHANGE WAS FOUND Confirmed by OCHOA ALBRIGHT, JOSE ELIAS ([id number]) on 11/04/2016 1:27:35 PM Referred By: Cindi REED Confirmed By:JOSE ELIAS PACKER MD
[2016-11-04] MEDS: dilTIAZem HCL 60 MG TABLET (FP) PO SCH ×3 (13:39→21:45)
[2016-11-04] MEDS ORDERED: FUROSEMIDE 40 MG/4 ML INJECTABLE VIAL IVPB ONE (15:37)
[2016-11-04] MEDS ORDERED: DIGOXIN 0.5 MG/2 ML AMPUL IVPUSH ONE (15:45)
[2016-11-05 08:55] LABS: CALCIUM 8.7 mg/dL (8.5-10.1)
[2016-11-05] MEDS: dilTIAZem HCL 60 MG TABLET (FP) PO SCH (09:49)
[2016-11-05] MEDS: METOPROLOL TARTRATE 25 MG TABLET (FP) PO SCH ×2 (09:50→23:06)
[2016-11-05] MEDS: HEPARIN INFUSION - 500 ML IVPB SCH (09:51)
--- NOTE | 2016-11-05 12:52 | PN ---
Progress Note, Physician Chief Complaint: sitting up in bed; no dypnea or chest pain; occasional cough History of Present Illness: Patient is a 66 year old white male, long-term cigarette smoker, who is presenting to the ED with several weeks of shortness of breath, productive cough , and dyspnea on exertion. The patient also endorses epigastric pain, orthopnea and leg swelling that began four days ago. Patient denies any other symptoms including fever, chills, chest pain, lightheadedness, palpitations, nausea, vomiting, diarrhea, melena, or rectal bleed. - Current Medication List Current Medications: Active Medications Digoxin (Lanoxin -) 0.25 mg PO Q6HPO RY Stop: 11/06/16 06:01 Heparin Sodium (Porcine) (Heparin -) 1,000 unit IVPUSH PRN PRN PRN Reason: Heparin Heparin Sodium (Porcine) (Heparin -) 5,000 unit IVPUSH PRN PRN PRN Reason: Heparin Heparin Sodium/Dextrose (Heparin Infusion -) 500 mls @ 20 mls/hr IVPB TITR RY ; 1,000 UNITS/HR PRN Reason: Protocol Last Admin: 11/05/16 09:51 Dose: 20 mls/hr Metoprolol Tartrate (Lopressor -) 25 mg PO BID RY Last Admin: 11/05/16 09:50 Dose: 25 mg Metoprolol Tartrate (Lopressor Injection -) 5 mg IVPUSH Q4H PRN PRN Reason: HYPERTENSION Last Admin: 11/04/16 06:45 Dose: 5 mg - Objective Vital Signs: Vital Signs Temperature 97.7 F 11/05/16 06:00 Pulse Rate 77 11/05/16 06:00 Respiratory Rate 20 11/05/16 06:00 Blood Pressure 109/57 11/05/16 06:00 O2 Sat by Pulse Oximetry (%) 98 11/04/16 21:00 Constitutional: Yes: Calm Eyes: Yes: WNL HENT: Yes: WNL Neck: Yes: WNL Cardiovascular: Yes: Tachycardia, Pulse Irregular Respiratory: Yes: Diminished (ribht base) Gastrointestinal: Yes: Soft ...Rectal Exam: Yes: Deferred Genitourinary: No: Anuria Breast(s): Yes: WNL Musculoskeletal: Yes: Muscle Weakness Extremities: Yes: Cool Edema: Yes Edema: LLE: 1+, RLE: 1+ Peripheral Pulses WNL: Yes Integumentary: Yes: Venous Stasis Changes, Other (right LE scar) Neurological: Yes: WNL Psychiatric: Yes: WNL Labs: CBC, BMP 11/04/16 05:35 11/05/16 05:50 INR, PTT INR 1.12 (0.82-1.09) 11/04/16 07:21 Abnormal Lab Results 11/04/16 11/05/16 11/05/16 05:35 05:50 05:50 PTT (Actin FS) BUN 21 H Hemoglobin A1c % 6.2 H B-Natriuretic Peptide 2249.78 H 11/05/16 05:50 PTT (Actin FS) 54.8 H BUN Hemoglobin A1c % B-Natriuretic Peptide - ....Imaging Ultrasound: Image Reviewed (EHO: severely reduced LVEF) Problem List - Problems (1) Atrial fibrillation Assessment/Plan: Severely reduced LVEF. (Please see medication changes under "...systolic CHF"). Agree with starting apixaban; stop IV heparin shortly after apixaban is started. Code(s): I48.91 - UNSPECIFIED ATRIAL FIBRILLATION Qualifiers: Qualified Code(s): I48.91 - Unspecified atrial fibrillation (2) Acute on chronic systolic (congestive) heart failure Assessment/Plan: stop diltiazem. Digoxin loading. Start lisinopril 2.5-5 mg daily. (For spironolactone in the future, if BUN/Cr and electrolytes allow). Furosemide prn (pt presently stable, with 1+ bilateral pitting edema to knees). Start statin; keep LDL cholesterol < 70 mg/dL. Coronary artery evaluation when stable. Code(s): I50.23 - ACUTE ON CHRONIC SYSTOLIC (CONGESTIVE) HEART FAILURE (3) Smokes cigarettes Assessment/Plan: Pt was on nicotine patch in the past; stopped because "it kept falling off"; agrees to try again while in hospital. Says he haw cut down to 1/2 ppd; would start 14 mg/day patch. Code(s): F17.210 - NICOTINE DEPENDENCE, CIGARETTES, UNCOMPLICATED
[2016-11-05] MEDS ORDERED: APIXABAN 5 MG TABLET PO SCH (13:00)
[2016-11-05] MEDS: LISINOPRIL 5 MG TABLET (FP) PO SCH (13:44)
[2016-11-05] MEDS: DIGOXIN 0.25 MG TABLET (FP) PO SCH ×3 (13:44→23:06)
[2016-11-05] MEDS: APIXABAN 5 MG TABLET PO SCH ×2 (13:45→23:06)
[2016-11-05] MEDS: NICOTINE 14 MG/24 HOURS TOPICAL PATCH TD SCH (13:45)
--- NOTE | 2016-11-05 15:04 | PN ---
Physical Exam: SUBJECTIVE: Patient seen and examined. He feels well, cough is still intermittent. Denies palpitation OBJECTIVE: Vital Signs Period Temp Pulse Resp BP Sys/Mccray Pulse Ox Last 24 Hr 97.5 F-98.8 F 74-143 18-20 103-125/57-72 98 PE Neuro: alert, awake, cn 2-12intact Pulm: CTAB CV: s1 s2 irregular rate and rhythm Abd: s nt nd + bs Ext: + 2 pitting edema L>R, warm Laboratory Results - last 24 hr 11/04/16 11/05/16 11/05/16 05:35 05:50 05:50 PTT (Actin FS) Sodium 141 Potassium 4.3 Chloride 103 Carbon Dioxide 27 Anion Gap 11 BUN 21 H Creatinine 1.0 Random Glucose 97 Hemoglobin A1c % 6.2 H Calcium 8.7 B-Natriuretic Peptide 2249.78 H Active Medications Generic Name Dose Route Start Last Admin Trade Name Freq PRN Reason Stop Dose Admin Apixaban 5 mg 11/05/16 13:01 11/05/16 13:45 Eliquis - PO 5 mg BID RY Administration Atorvastatin Calcium 20 mg 11/05/16 22:00 Lipitor - PO HS RY Digoxin 0.25 mg 11/05/16 12:45 11/05/16 13:44 Lanoxin - PO 11/06/16 06:01 0.25 mg Q6HPO RY Administration Heparin Sodium (Porcine) 1,000 unit 11/04/16 00:33 Heparin - IVPUSH PRN PRN Heparin Heparin Sodium (Porcine) 5,000 unit 11/04/16 00:33 Heparin - IVPUSH PRN PRN Heparin Heparin Sodium/Dextrose 500 mls @ 20 mls/hr 11/04/16 00:45 11/05/16 09:51 Heparin Infusion - IVPB 20 mls/hr TITR RY Administration Protocol 1,000 UNITS/HR Lisinopril 5 mg 11/05/16 13:00 11/05/16 13:44 Prinivil PO 5 mg DAILY RY Administration Metoprolol Tartrate 25 mg 11/04/16 00:30 11/05/16 09:50 Lopressor - PO 25 mg BID RY Administration Metoprolol Tartrate 5 mg 11/04/16 00:17 11/04/16 06:45 Lopressor Injection - IVPUSH 5 mg Q4H PRN Administration HYPERTENSION Nicotine 14 mg 11/05/16 13:00 11/05/16 13:45 Nicoderm Patch - TD 14 mg DAILY RY Administration Assessment: 66 year old male with no known medical history admitted with several weeks of dyspnea on exertion found to have new onset A fib w/ RVR. Plan: 1. New onset AFIB with RVR - Stop Cardizem - Digoxin loading today - Increase metoprolol 25mg BID - Start eliquis 5mg BID, stop heparin 2 hr following first dose 2. Acute on chronic systolic CHF/ Severely reduced LV - ECHO shows severely reduced LV, RVSF severely reduced, severe MR, mod TR, RVSP normal - Increase Metoprolol 25mg BID - Start Lisinopril 5mg daily - Lasix PRN worsening LE edema - Stress test possible Wednesday, to see how fairs with medical mgnmt - Aldactone in future - Discussed above with cardiology 3. DVT - Started Eliquis 4. Smoking cessation - Nicotine patch daily Visit type - Emergency Visit Emergency Visit: Yes ED Registration Date: 11/03/16 Care time: The patient presented to the Emergency Department on the above date and was hospitalized for further evaluation of their emergent condition. - New Patient This patient is new to me today: No - Critical Care Critical Care patient: No
[2016-11-05] MEDS: ATORVASTATIN CA 20 MG TABLET (FP) PO SCH (23:09)
[2016-11-06] MEDS: DIGOXIN 0.25 MG TABLET (FP) PO SCH (06:37)
[2016-11-06 07:30] LABS: MCHC 32.7 g/dl (32.0-35.9); MEAN CELL VOLUME 100.9 fl (80-96); PLATELET COUNT 171 K/MM3 (134-434); WHITE BLOOD COUNT 8.9 K/mm3 (4.0-10.0)
[2016-11-06 07:58] LABS: CALCIUM 8.7 mg/dL (8.5-10.1); COCKROFT - GAULT 131.6; CREATININE 0.8 mg/dL (0.7-1.3)
[2016-11-06] MEDS: APIXABAN 5 MG TABLET PO SCH ×2 (10:12→21:43)
[2016-11-06] MEDS: METOPROLOL TARTRATE 25 MG TABLET (FP) PO SCH ×2 (10:12→21:43)
[2016-11-06] MEDS: NICOTINE 14 MG/24 HOURS TOPICAL PATCH TD SCH (10:13)
[2016-11-06] MEDS: LISINOPRIL 5 MG TABLET (FP) PO SCH (10:13)
--- NOTE | 2016-11-06 10:25 | PN ---
Progress Note (short form) - Note Progress Note: Subjective: the patient was seen and examined at the bedside, he reports feeling good today. Denies any chest pain Current Medications Generic Name Dose Route Start Last Admin Trade Name Freq PRN Reason Stop Dose Admin Apixaban 5 mg 11/05/16 13:01 11/05/16 23:06 Eliquis - PO 5 mg BID RY Administration Atorvastatin Calcium 20 mg 11/05/16 22:00 11/05/16 23:09 Lipitor - PO 20 mg HS RY Administration Lisinopril 5 mg 11/05/16 13:00 11/05/16 13:44 Prinivil PO 5 mg DAILY RY Administration Metoprolol Tartrate 25 mg 11/04/16 00:30 11/05/16 23:06 Lopressor - PO 25 mg BID RY Administration Metoprolol Tartrate 5 mg 11/04/16 00:17 11/04/16 06:45 Lopressor Injection - IVPUSH 5 mg Q4H PRN Administration HYPERTENSION Nicotine 14 mg 11/05/16 13:00 11/05/16 13:45 Nicoderm Patch - TD 14 mg DAILY RY Administration Objective: Vital Signs Period Temp Pulse Resp BP Sys/Mccray Pulse Ox Last 24 Hr 97.5 F-98.1 F 81-143 18-22 87-145/60-88 95 Physical Exam: General: NAD, A&Ox3 Lungs: CTA bilaterally Heart: Irregular rate and rhythm, S1S2 Abd: Soft, non-tender, non-distended. Normoactive bowel sounds Ext: 2+ pitting edema bilaterally Neuro: CN 2-12 intact CBCD WBC 8.9 K/mm3 (4.0-10.0) 11/06/16 05:35 RBC 4.51 M/mm3 (4.00-5.60) 11/06/16 05:35 Hgb 14.9 GM/dL (11.7-16.9) 11/06/16 05:35 Hct 45.5 % (35.4-49) 11/06/16 05:35 MCV 100.9 fl (80-96) H 11/06/16 05:35 MCHC 32.7 g/dl (32.0-35.9) 11/06/16 05:35 RDW 15.0 % (11.9-15.9) 11/06/16 05:35 Plt Count 171 K/MM3 (134-434) 11/06/16 05:35 MPV 9.0 fl (7.5-11.1) 11/06/16 05:35 CMP Sodium 143 mmol/L (136-145) 11/06/16 05:35 Potassium 4.9 mmol/L (3.5-5.1) 11/06/16 05:35 Chloride 105 mmol/L (98-107) 11/06/16 05:35 Carbon Dioxide 29 mmol/L (21-32) 11/06/16 05:35 Anion Gap 9 (8-16) 11/06/16 05:35 BUN 16 mg/dL (7-18) D 11/06/16 05:35 Creatinine 0.8 mg/dL (0.7-1.3) 11/06/16 05:35 Creat Clearance w eGFR > 60 (>60) 11/03/16 18:40 Random Glucose 88 mg/dL (74-106) 11/06/16 05:35 Calcium 8.7 mg/dL (8.5-10.1) 11/06/16 05:35 Total Bilirubin 0.8 mg/dL (0.2-1.0) 11/03/16 18:40 AST 38 U/L (15-37) H 11/03/16 18:40 ALT 67 U/L (12-78) 11/03/16 18:40 Alkaline Phosphatase 65 U/L (45-117) 11/03/16 18:40 Total Protein 6.2 g/dl (6.4-8.2) L 11/03/16 18:40 Albumin 3.6 g/dl (3.4-5.0) 11/03/16 18:40 CARDIAC ENZYMES Creatine Kinase 121 IU/L (39-308) 11/03/16 18:40 Troponin I < 0.02 ng/ml (0.00-0.05) 11/04/16 05:35 Assessment: This is a 66 year old male with no significant PMHx who presented to the ED with several weeks of dyspnea on exertion and was found to have new onset a.fib with RVR Plan: 1) Cardiology: New onset a.fib with RVR - Continue Eliquis 5mg po bid - Lopressor 25mg po bid Acute on chronic systolic CHF - Severely reduced LV - Continue BB - Continue Lisinopril - Lasix prn - Stress test once medically stable, likely Wednesday per cardiology - Appreciate cardiology consult 2) F/E/N: - Monitor electrolytes - Cardiac diet 3) Prophylaxis: - OOB ambulating - On Eliquis - Nicotine patch daily 4) Dispo: - Requires continued inpatient care CODE STATUS: FULL CODE Visit type - Emergency Visit Emergency Visit: Yes ED Registration Date: 11/03/16 Care time: The patient presented to the Emergency Department on the above date and was hospitalized for further evaluation of their emergent condition. - New Patient This patient is new to me today: Yes Date on this admission: 11/06/16 - Critical Care Critical Care patient: No
[2016-11-06] MEDS ORDERED: DIGOXIN 0.125 MG TABLET (FP) PO SCH (16:00)
--- NOTE | 2016-11-06 21:15 | PN ---
Progress Note, Physician Chief Complaint: Pt has no chest pain; still with dhspnea on mild exertion. History of Present Illness: Patient is a 66 year old white male, long-term cigarette smoker, who is presenting to the ED with several weeks of shortness of breath, productive cough , and dyspnea on exertion. The patient also endorses epigastric pain, orthopnea and leg swelling that began four days ago. Patient denies any other symptoms including fever, chills, chest pain, lightheadedness, palpitations, nausea, vomiting, diarrhea, melena, or rectal bleed. - Current Medication List Current Medications: Active Medications Apixaban (Eliquis -) 5 mg PO BID [facility] Last Admin: 11/06/16 10:12 Dose: 5 mg Atorvastatin Calcium (Lipitor -) 20 mg PO HS [facility] Last Admin: 11/05/16 23:09 Dose: 20 mg Digoxin (Lanoxin -) 0.125 mg PO Q2D [facility] Lisinopril (Prinivil) 5 mg PO DAILY [facility] Last Admin: 11/06/16 10:13 Dose: 5 mg Metoprolol Tartrate (Lopressor -) 25 mg PO BID [facility] Last Admin: 11/06/16 10:12 Dose: 25 mg Metoprolol Tartrate (Lopressor Injection -) 5 mg IVPUSH Q4H PRN PRN Reason: HYPERTENSION Last Admin: 11/04/16 06:45 Dose: 5 mg Nicotine (Nicoderm Patch -) 14 mg TD DAILY [facility] Last Admin: 11/06/16 10:13 Dose: 14 mg - Objective Vital Signs: Vital Signs Temperature 97.8 F 11/06/16 21:01 Pulse Rate 107 H 11/06/16 21:01 Respiratory Rate 18 11/06/16 21:01 Blood Pressure 118/75 11/06/16 21:01 O2 Sat by Pulse Oximetry (%) 96 11/06/16 10:00 Constitutional: Yes: Calm Eyes: Yes: WNL HENT: Yes: WNL Neck: Yes: WNL Cardiovascular: Yes: Pulse Irregular Respiratory: Yes: Regular Gastrointestinal: Yes: Soft ...Rectal Exam: Yes: Deferred Genitourinary: No: Anuria Breast(s): Yes: WNL Musculoskeletal: Yes: Muscle Weakness Extremities: Yes: Cool Edema: Yes Edema: LLE: Trace, RLE: Trace Peripheral Pulses WNL: No Peripheral Pulses: Left Doralis Pedis: 1+, Right Dorsalis Pedis: 1+ Integumentary: Yes: Venous Stasis Changes Neurological: Yes: Alert, Oriented, Weakness Psychiatric: Yes: WNL Labs: CBC, BMP 11/06/16 05:35 11/06/16 05:35 INR, PTT INR 1.12 (0.82-1.09) 11/04/16 07:21 Abnormal Lab Results 11/06/16 11/06/16 05:35 05:35 MCV 100.9 H PTT (Actin FS) 35.2 H D - ....Imaging Other: Image Reviewed (telemetry: AF; periods of RVR; occasional pauses ( longest approximately 2 seconds)) Problem List - Problems (1) Atrial fibrillation Assessment/Plan: Severely reduced LVEF and RVEF. Continue metoprolol and digoxin for HR control. Keep digoxin level 0.5-1.0. On apixaban. Code(s): I48.91 - UNSPECIFIED ATRIAL FIBRILLATION Qualifiers: Qualified Code(s): I48.91 - Unspecified atrial fibrillation (2) Acute on chronic systolic (congestive) heart failure Assessment/Plan: On metoprolol. On digoxin (keep level no higher than 1.0). Start lisinopril 2.5-5 mg daily. (For spironolactone in the future, if BUN/Cr and electrolytes allow). Furosemide prn. Start statin; keep LDL cholesterol < 70 mg/dL. Coronary artery evaluation when stable (plan for [id number] heart catheterization). Hold apixaban 24 hours prior to angiogram. Code(s): I50.23 - ACUTE ON CHRONIC SYSTOLIC (CONGESTIVE) HEART FAILURE (3) Smokes cigarettes Assessment/Plan: On incotine patch. Code(s): F17.210 - NICOTINE DEPENDENCE, CIGARETTES, UNCOMPLICATED
[2016-11-06] MEDS: ATORVASTATIN CA 20 MG TABLET (FP) PO SCH (21:43)
[2016-11-07 07:44] LABS: MCH 33.4 pg (25.7-33.7); MCHC 33.3 g/dl (32.0-35.9); MEAN CELL VOLUME 100.4 fl (80-96); MEAN PLT VOLUME 8.5 fl (7.5-11.1); PLATELET COUNT 172 K/MM3 (134-434); RDW 15.5 % (11.9-15.9); WHITE BLOOD COUNT 8.5 K/mm3 (4.0-10.0)
[2016-11-07] MEDS: DIGOXIN 0.125 MG TABLET (FP) PO SCH (09:31)
[2016-11-07] MEDS: NICOTINE 14 MG/24 HOURS TOPICAL PATCH TD SCH (09:31)
[2016-11-07] MEDS: METOPROLOL TARTRATE 25 MG TABLET (FP) PO SCH ×2 (09:32→21:19)
[2016-11-07] MEDS: APIXABAN 5 MG TABLET PO SCH (09:32)
[2016-11-07] MEDS: LISINOPRIL 5 MG TABLET (FP) PO SCH (09:32)
--- NOTE | 2016-11-07 13:53 | PN ---
Progress Note, Physician Chief Complaint: Pt has no chest pain; walked the long hallway with little fatigue or dyspnea, and no chest pain or palpitations (this is markedly different from how he felt prior to coming to hospital, when he could barely catch his breath, even at rest ). is at bedside. History of Present Illness: Patient is a 66 year old white male, long-term cigarette smoker, who is presenting to the ED with several weeks of shortness of breath, productive cough , and dyspnea on exertion. The patient also endorses epigastric pain, orthopnea and leg swelling that began four days ago. Patient denies any other symptoms including fever, chills, chest pain, lightheadedness, palpitations, nausea, vomiting, diarrhea, melena, or rectal bleed. - Current Medication List Current Medications: Active Medications Atorvastatin Calcium (Lipitor -) 20 mg PO HS [facility] Last Admin: 11/06/16 21:43 Dose: 20 mg Digoxin (Lanoxin -) 0.125 mg PO Q2D [facility] Last Admin: 11/07/16 09:31 Dose: 0.125 mg Enoxaparin Sodium (Lovenox -) 100 mg SQ 2130 ONE Stop: 11/07/16 21:31 Enoxaparin Sodium (Lovenox -) 100 mg SQ 08,1999 [facility] Stop: 11/08/16 20:01 Lisinopril (Prinivil) 5 mg PO DAILY [facility] Last Admin: 11/07/16 09:32 Dose: 5 mg Metoprolol Tartrate (Lopressor -) 25 mg PO BID [facility] Last Admin: 11/07/16 09:32 Dose: 25 mg Metoprolol Tartrate (Lopressor Injection -) 5 mg IVPUSH Q4H PRN PRN Reason: HYPERTENSION Last Admin: 11/04/16 06:45 Dose: 5 mg Nicotine (Nicoderm Patch -) 14 mg TD DAILY [facility] Last Admin: 11/07/16 09:31 Dose: 14 mg - Objective Vital Signs: Vital Signs Temperature 97.5 F L 11/07/16 09:00 Pulse Rate 11 L 11/07/16 09:31 Respiratory Rate 18 11/07/16 09:00 Blood Pressure 119/84 11/07/16 09:00 O2 Sat by Pulse Oximetry (%) 95 11/07/16 09:00 Constitutional: Yes: Calm Eyes: Yes: WNL HENT: Yes: WNL Neck: Yes: WNL Cardiovascular: Yes: Pulse Irregular Respiratory: Yes: Regular Gastrointestinal: Yes: Soft ...Rectal Exam: Yes: Deferred Genitourinary: No: Anuria Breast(s): Yes: WNL Musculoskeletal: Yes: Joint Stiffness Extremities: Yes: Cool Edema: Yes Edema: LLE: Trace, RLE: Trace Peripheral Pulses WNL: Yes Integumentary: Yes: WNL Labs: CBC, BMP 11/07/16 05:35 11/06/16 05:35 INR, PTT INR 1.12 (0.82-1.09) 11/04/16 07:21 Problem List - Problems (1) Atrial fibrillation Assessment/Plan: Severely reduced LVEF and RVEF. Continue metoprolol and digoxin for HR control. Keep digoxin level 0.5-1.0. On apixaban; held now, and lovenox started, until pt goes for coronary cath 05/2017. Code(s): I48.91 - UNSPECIFIED ATRIAL FIBRILLATION Qualifiers: Qualified Code(s): I48.91 - Unspecified atrial fibrillation (2) Acute on chronic systolic (congestive) heart failure Assessment/Plan: On metoprolol. On digoxin (keep level no higher than 1.0). Started lisinopril 2.5-5 mg daily; increased to 10 mg today. (For spironolactone in the future, if BUN/Cr and electrolytes allow). Furosemide prn. Started statin; keep LDL cholesterol < 70 mg/dL. Coronary artery evaluation when stable (plan for [id number] heart catheterization 11/09/2016). Pt may require ICD. Hold apixaban; Lovenox started (to be d/lawson after tomorrow's evening dose). Discussed pt with Dr. Romero, interventionalist. Code(s): I50.23 - ACUTE ON CHRONIC SYSTOLIC (CONGESTIVE) HEART FAILURE (3) Smokes cigarettes Assessment/Plan: On incotine patch. Code(s): F17.210 - NICOTINE DEPENDENCE, CIGARETTES, UNCOMPLICATED
[2016-11-07] MEDS ORDERED: LISINOPRIL 5 MG TABLET (FP) PO ONE (13:57)
--- NOTE | 2016-11-07 15:44 | PN ---
Physical Exam: SUBJECTIVE: Patient seen and examined. he offers no complaints, no sob, cough. He has no further questions about his cath procedure. Daughters at bedside. OBJECTIVE: Vital Signs Period Temp Pulse Resp BP Sys/Mccray Pulse Ox Last 24 Hr 97.5 F-98.2 F 11-107 18-20 118-135/54-84 95-96 PE Neuro: alert, awake, cn 2-12intact Pulm: CTAB CV: s1 s2 irregular rate and rhythm Abd: s nt nd + bs Ext: + 1 pitting edema L>R, warm Laboratory Results - last 24 hr 11/07/16 11/07/16 05:35 05:35 WBC 8.5 RBC 4.56 Hgb 15.2 Hct 45.7 MCV 100.4 H MCHC 33.3 RDW 15.5 Plt Count 172 MPV 8.5 PTT (Actin FS) 32.9 Active Medications Generic Name Dose Route Start Last Admin Trade Name Freq PRN Reason Stop Dose Admin Atorvastatin Calcium 20 mg 11/05/16 22:00 11/06/16 21:43 Lipitor - PO 20 mg HS RY Administration Digoxin 0.125 mg 11/07/16 10:00 11/07/16 09:31 Lanoxin - PO 0.125 mg Q2D RY Administration Enoxaparin Sodium 100 mg 11/07/16 21:30 Lovenox - SQ 11/07/16 21:31 2130 ONE Enoxaparin Sodium 100 mg 11/08/16 08:00 Lovenox - SQ 11/08/16 20:01 0800,2000 RY Lisinopril 10 mg 11/08/16 10:00 Prinivil PO DAILY RY Metoprolol Tartrate 25 mg 11/04/16 00:30 11/07/16 09:32 Lopressor - PO 25 mg BID RY Administration Metoprolol Tartrate 5 mg 11/04/16 00:17 11/04/16 06:45 Lopressor Injection - IVPUSH 5 mg Q4H PRN Administration HYPERTENSION Nicotine 14 mg 11/05/16 13:00 11/07/16 09:31 Nicoderm Patch - TD 14 mg DAILY RY Administration Assessment: 66 year old male with no significant PMHx admitted with several weeks of dyspnea on exertion and was found to have new onset a.fib with RVR Plan: 1. New onset a.fib with RVR - Hold Eliquis 5mg po bid for upcoming cath - Start lovenox, to be d/c tomorrow dose - Lopressor 25mg po bid - Dig 0.125mg Q2D 2. Acute on chronic systolic CHF - Severely reduced LV - Continue BB - Increase Lisinopril 10mg - For R and L heart cath thursday 11/09 3. Smoking cessation - Nicoderm patch Visit type - Emergency Visit Emergency Visit: Yes ED Registration Date: 11/03/16 Care time: The patient presented to the Emergency Department on the above date and was hospitalized for further evaluation of their emergent condition. - New Patient This patient is new to me today: No - Critical Care Critical Care patient: No
--- NOTE | 2016-11-07 16:19 | EKG ---
Test Reason : Blood Pressure : / mmHG Vent. Rate : 099 BPM Atrial Rate : 227 BPM P-R Int : 000 ms QRS Dur : 090 ms QT Int : 304 ms P-R-T Axes : 000 016 142 degrees QTc Int : 390 ms ATRIAL FIBRILLATION T WAVE ABNORMALITY, CONSIDER ANTERIOR ISCHEMIA ABNORMAL ECG WHEN COMPARED WITH ECG OF 04-NOV-2016 09:26, NONSPECIFIC T WAVE ABNORMALITY, WORSE IN INFERIOR LEADS T WAVE INVERSION NOW EVIDENT IN ANTERIOR LEADS Confirmed by ANGELA ALBRIGHT, JANNETH ([id number]) on 11/07/2016 4:18:37 PM Referred By: Cindi JOHNSON Confirmed By:JANNETH MILLER MD
[2016-11-07] MEDS: ATORVASTATIN CA 20 MG TABLET (FP) PO SCH (21:19)
[2016-11-07] MEDS ORDERED: ENOXAPARIN NA (PORCINE) 100 MG/1 ML DISP.SYRIN SQ ONE (21:30)
[2016-11-08] MEDS: ENOXAPARIN NA (PORCINE) 100 MG/1 ML DISP.SYRIN SQ SCH ×2 (07:46→19:54)
[2016-11-08 08:07] LABS: MCH 33.2 pg (25.7-33.7); MEAN CELL VOLUME 100.7 fl (80-96); MEAN PLT VOLUME 8.8 fl (7.5-11.1); PLATELET COUNT 167 K/MM3 (134-434); RDW 15.2 % (11.9-15.9)
[2016-11-08] MEDS: NICOTINE 14 MG/24 HOURS TOPICAL PATCH TD SCH (11:34)
[2016-11-08] MEDS: LISINOPRIL 10 MG TABLET (FP) PO SCH (11:35)
[2016-11-08] MEDS: METOPROLOL TARTRATE 25 MG TABLET (FP) PO SCH (11:35)
--- NOTE | 2016-11-08 12:23 | PN ---
Progress Note, Physician Chief Complaint: Pt ambulated the long hallway without symptoms. AF; periods of RVR, both at rest and with exertion. History of Present Illness: Pt ambulating; denies dyspnea, palpitations, or chewst pain. - Current Medication List Current Medications: Active Medications Atorvastatin Calcium (Lipitor -) 20 mg PO HS [facility] Last Admin: 11/07/16 21:19 Dose: 20 mg Digoxin (Lanoxin -) 0.125 mg PO Q2D [facility] Last Admin: 11/07/16 09:31 Dose: 0.125 mg Enoxaparin Sodium (Lovenox -) 100 mg SQ 799,1999 [facility] Stop: 11/08/16 20:01 Last Admin: 11/08/16 07:46 Dose: 100 mg Lisinopril (Prinivil) 10 mg PO DAILY [facility] Last Admin: 11/08/16 11:35 Dose: 10 mg Metoprolol Tartrate (Lopressor -) 25 mg PO BID [facility] Last Admin: 11/08/16 11:35 Dose: 25 mg Metoprolol Tartrate (Lopressor Injection -) 5 mg IVPUSH Q4H PRN PRN Reason: HYPERTENSION Last Admin: 11/04/16 06:45 Dose: 5 mg Nicotine (Nicoderm Patch -) 14 mg TD DAILY [facility] Last Admin: 11/08/16 11:34 Dose: 14 mg - Objective Vital Signs: Vital Signs Temperature 97.9 F 11/08/16 08:51 Pulse Rate 61 11/08/16 08:51 Respiratory Rate 18 11/08/16 09:00 Blood Pressure 158/66 11/08/16 08:51 O2 Sat by Pulse Oximetry (%) 95 11/08/16 09:00 Constitutional: Yes: No Distress Eyes: Yes: WNL HENT: Yes: WNL Neck: Yes: WNL Cardiovascular: Yes: Pulse Irregular Respiratory: Yes: Regular ...Rectal Exam: Yes: Deferred Genitourinary: No: Anuria Musculoskeletal: Yes: WNL Extremities: Yes: WNL Edema: No Peripheral Pulses WNL: Yes Integumentary: Yes: WNL Neurological: Yes: WNL Psychiatric: Yes: WNL Labs: CBC, BMP 11/08/16 05:35 11/06/16 05:35 INR, PTT INR 1.12 (0.82-1.09) 11/04/16 07:21 Abnormal Lab Results 11/08/16 11/08/16 05:35 05:35 MCV 100.7 H PTT (Actin FS) 37.3 H - ....Imaging Other: Image Reviewed (telemetry: AF; frequent periods of RVR) Problem List - Problems (1) Atrial fibrillation Assessment/Plan: Severely reduced LVEF and RVEF. Continue metoprolol and digoxin for HR control; increased metoprolol tartrate from 25 to 50 mg bid today. Keep digoxin level 0.5-1.0 (reduced to 0.125 mg q 48 hrs). On apixaban; held now, and lovenox started, until pt goes for coronary cath 05/2017. Code(s): I48.91 - UNSPECIFIED ATRIAL FIBRILLATION Qualifiers: Qualified Code(s): I48.91 - Unspecified atrial fibrillation (2) Acute on chronic systolic (congestive) heart failure Assessment/Plan: On metoprolol. On digoxin (keep level no higher than 1.0). Metoprolol tartrate increased to 50 mg bid for AF with RVR, systolic CHF> Started lisinopril 2.5-5 mg daily; increased to 10 mg.. (For spironolactone in the future, if BUN/Cr and electrolytes allow). Furosemide prn. Started statin; keep LDL cholesterol < 70 mg/dL. Coronary artery evaluation when stable (plan for [id number] heart catheterization 11/09/2016). Pt may require ICD. Hold apixaban; Lovenox started (to be d/lawson after today's evening dose). Discussed pt with Dr. Romero, interventionalist. Code(s): I50.23 - ACUTE ON CHRONIC SYSTOLIC (CONGESTIVE) HEART FAILURE (3) Smokes cigarettes Code(s): F17.210 - NICOTINE DEPENDENCE, CIGARETTES, UNCOMPLICATED
[2016-11-08] MEDS ORDERED: METOPROLOL TARTRATE 25 MG TABLET (FP) PO ONE (13:30)
--- NOTE | 2016-11-08 14:24 | DS ---
Physical Exam: SUBJECTIVE: Patient seen and examined. He denies palpitations, sob, cough. He is aware of his procedure tomorrow Events: Tele: periods of uncontrolled HR OBJECTIVE: Vital Signs Period Temp Pulse Resp BP Sys/Mccray Pulse Ox Last 24 Hr 97.7 F-98.1 F 20-142 18-20 106-158/65-91 95-95 PE Neuro: alert, awake, cn 2-12intact Pulm: CTAB CV: s1 s2 irregular rate and rhythm Abd: s nt nd + bs Ext: + 1 pitting edema L>R, warm Laboratory Results - last 24 hr 11/08/16 11/08/16 05:35 05:35 WBC 9.0 RBC 4.56 Hgb 15.2 Hct 45.9 MCV 100.7 H MCHC 33.0 RDW 15.2 Plt Count 167 MPV 8.8 PTT (Actin FS) 37.3 H HOSPITAL COURSE: Date of Admission:11/03/16 Date of Discharge: 11/08/16 Minutes to complete discharge: 35 Discharge Summary Reason For Visit: ATRIAL FIBRILLATION Current Active Problems Acute on chronic systolic (congestive) heart failure (Acute) Atrial fibrillation (Acute) Smokes cigarettes (Acute) Hospital Course: Initial Hospital Course: Briefly, this 66 year old male with no known medical history admitted with several weeks of dyspnea on exertion. He was unable to walk 40 feet without becoming short of breath. The patient endorsed associated epigastric pain, bilateral lower extremity edema for 4 days, and orthopnea, productive cough with yellow-clear sputum for several weeks. The patient works as a mechanical manufacturing technician and noted hes has had recent sick contacts at his workplace. He does not have a PCP but most recently saw Dr. Delgado for a pre-operative appointment. Subsequent Hospital Course/Progress Note/Transfer Summary by a/p: Assessment: 66 year old male with no significant PMHx admitted with several weeks of dyspnea on exertion and was found to have new onset a.fib with RVR Plan: 1. New onset a.fib with RVR - Hold Eliquis 5mg po bid for upcoming cath - Lovenox, last dose tonight - Increase Lopressor 50mg po bid - Dig 0.125mg Q2D - NPO after midnight - D/w Dr. Valentin, will continue to see as outpt 2. Acute on chronic systolic CHF with severely reduced LV fx - Continue BB - Lisinopril 10mg - To start aldactone in future - For R and L heart cath thursday 11/09 3. Smoking cessation - Nicoderm patch Dispo: - Transfer to [facility] for R/L heart cath and possible ICD Condition: Guarded - Instructions Diet, Activity, Other Instructions: Transfer to [facility] for cardiac cath Referrals: Stanley Valentin MD [Staff Physician] - Jennifer Delgado MD [Non Staff, Medical] - Disposition: TRANSFER ACUTE CARE/OTHER HOSP - Home Medications Comprehensive Discharge Medication List: Ambulatory Orders NK [No Known Home Medication] 11/03/16 This patient is new to me today: No Emergency Visit: Yes ED Registration Date: 11/03/16 Care time: The patient presented to the Emergency Department on the above date and was hospitalized for further evaluation of their emergent condition. Critical Care patient: No - Discharge Referral Referred to [facility] Med P.C.: No
[2016-11-08] MEDS: ATORVASTATIN CA 20 MG TABLET (FP) PO SCH (21:52)
[2016-11-08] MEDS: METOPROLOL TARTRATE 50 MG TABLET (FP) PO SCH (21:52)
[2016-11-09 07:51] LABS: MCH 33.3 pg (25.7-33.7); MCHC 33.2 g/dl (32.0-35.9); MEAN CELL VOLUME 100.3 fl (80-96); MEAN PLT VOLUME 8.7 fl (7.5-11.1); PLATELET COUNT 187 K/MM3 (134-434); RDW 15.4 % (11.9-15.9); WHITE BLOOD COUNT 8.9 K/mm3 (4.0-10.0)
[2016-11-09 08:58] VITALS: BP 112/56; PULSE 96; TEMP 98
[2016-11-09] MEDS: DIGOXIN 0.125 MG TABLET (FP) PO SCH (10:15)
[2016-11-09] MEDS: LISINOPRIL 10 MG TABLET (FP) PO SCH (10:15)
[2016-11-09] MEDS: METOPROLOL TARTRATE 50 MG TABLET (FP) PO SCH (10:15)
[2016-11-09] MEDS: NICOTINE 14 MG/24 HOURS TOPICAL PATCH TD SCH (10:18)
--- NOTE | 2016-11-10 10:21 | PN ---
Progress Note, Physician Chief Complaint: Pt is presently asymptomatic. History of Present Illness: Patient is a 66 year old white male with no known medical hx who is presenting to the ED with several weeks of shortness of breath and dyspnea on exertion. The patient also endorses epigastric pain, orthopnea and leg swelling that began four days ago. Patient denies any other symptoms including fever, chills, chest pain, lightheadedness, palpitations, nausea, vomiting, diarrhea, melena, rectal bleeding, or coughing. - Objective Vital Signs: Vital Signs Temperature 98 F 11/09/16 08:52 Pulse Rate 96 H 11/09/16 10:15 Respiratory Rate 20 11/09/16 09:00 Blood Pressure 112/56 11/09/16 08:52 O2 Sat by Pulse Oximetry (%) 96 11/09/16 09:00 Constitutional: Yes: Calm Eyes: Yes: WNL HENT: Yes: WNL Neck: Yes: WNL Cardiovascular: Yes: Pulse Irregular Respiratory: Yes: Regular Gastrointestinal: Yes: Soft ...Rectal Exam: Yes: Deferred Genitourinary: No: Anuria Musculoskeletal: Yes: WNL Extremities: Yes: Cool Edema: No Peripheral Pulses WNL: Yes Integumentary: Yes: WNL Neurological: Yes: Alert, Oriented Psychiatric: Yes: WNL Labs: CBC, BMP 11/09/16 05:35 11/06/16 05:35 INR, PTT INR 1.12 (0.82-1.09) 11/04/16 07:21 Problem List - Problems (1) Atrial fibrillation Assessment/Plan: Severely reduced LVEF and RVEF. Continue metoprolol and digoxin for HR control; increased metoprolol tartrate from 25 to 50 mg bid. Keep digoxin level 0.5-1.0 (reduced to 0.125 mg q 48 hrs). pt goes for coronary cath today. Code(s): I48.91 - UNSPECIFIED ATRIAL FIBRILLATION Qualifiers: Qualified Code(s): I48.91 - Unspecified atrial fibrillation (2) Acute on chronic systolic (congestive) heart failure Assessment/Plan: On metoprolol. On digoxin (keep level no higher than 1.0). Metoprolol tartrate increased to 50 mg bid for AF with RVR, systolic CHF> Started lisinopril 2.5-5 mg daily; increased to 10 mg.. (For spironolactone in the future, if BUN/Cr and electrolytes allow). Furosemide prn. Started statin; keep LDL cholesterol < 70 mg/dL. Coronary artery evaluation today. Code(s): I50.23 - ACUTE ON CHRONIC SYSTOLIC (CONGESTIVE) HEART FAILURE (3) Smokes cigarettes Assessment/Plan: On incotine patch. Code(s): F17.210 - NICOTINE DEPENDENCE, CIGARETTES, UNCOMPLICATED
== END 2016-11-09 12:02 | disposition short-term general hospital (02) | DRG 293 ==
LOC: JER 16:53 → JERBED 19:43 → J4W 22:31
PROVIDERS: ADMIT Internal Medicine; ATTEND Registered Nurse
DX: I50.23 Acute on chronic systolic (congestive) heart failure (principal); I48.91 Unspecified atrial fibrillation; F17.210 Nicotine dependence, cigarettes, uncomplicated
CPT/HCPCS: 36415; 71010-TC; 80048; 80053; 80061; 81003; 81015; 82550; 83036; 83721; 83735; 83880; 84443; 84484; 85025; 85027; 85610; 85730; 86850; 86900; 86901; 93005; 93010; 93306-TC; 94010; 99285-25; J1644

== ENCOUNTER 2016-11-24 23:11 | Emergency (ER) | payer OTHER ==
[2016-11-24 23:17] VITALS: BP 133/76; PULSE 72; TEMP 98.1; BMI 28.5
--- NOTE | 2016-11-25 | PDOC ---
[id number] No Limitations - History of Present Illness Initial Comments: 11/25/16 00:15 The patient is a 66 year old male with significant past medical history of recent diagnosis of arrhythmia who presents to the ED with hematuria less than 24 hours. Patient denies any pain, dysuria, urgency, or frequency. States he was recently in [place] where he was diagnosed with heart arrhythmia that can possibly be a-fib. He was treated with anticoagulation, first he was started on heparin than switched to coumadin and now on xarelto for the last 3 days. States he quit smoking 4 weeks ago. Denies h/o of kidney stones. The patient denies fever, chills, cough, SOB, chest pain, and palpitations. The patient denies abdominal pain, nausea, vomiting, and diarrhea. Allergies: penicillin Social History: Former smoker (quit smoking 4 weeks ago, half ppd for several years). No alcohol or drug use reported. Past Surgical History: s/p cardiac catheterization PCP: None reported <Maria Eugenia Rose - Last Filed: 11/25/16 00:15> - General History Source: Patient <Darrion Wills - Last Filed: 11/25/16 19:46> - General Chief Complaint: Hematuria Stated Complaint: HEMATURIA Time Seen by Provider: 11/24/16 23:54 Past History <Maria Eugenia Rose - Last Filed: 11/25/16 00:15> - Past Medical History Anemia: No Asthma: No Cancer: No Cardiac Disorders: Yes (atrial fibrillation) CVA: No COPD: No CHF: No Dementia: No Diabetes: No GI Disorders: No Disorders: No HTN: No Hypercholesterolemia: No Liver Disease: No Seizures: No Thyroid Disease: No - Surgical History Abdominal Surgery: No Appendectomy: No Cardiac Surgery: Yes (cardiac catheterization) Cholecystectomy: No Lung Surgery: No Neurologic Surgery: No Orthopedic Surgery: Yes (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) - Immunization History Td Vaccination: Yes Immunization Up to Date: Yes - Psycho/Social/Smoking Cessation Hx Suicidal Ideation: No Smoking Status: Yes Smoking History: Former smoker Have you smoked in the past 12 months: Yes Number of Cigarettes Smoked Daily: 10 If you are a former smoker, when did you quit?: 3 weeks ago Information on smoking cessation initiated: No Hx Alcohol Use: No Drug/Substance Use Hx: No Substance Use Type: None Hx Substance Use Treatment: No <Darrion Wills - Last Filed: 11/25/16 19:46> - Past Medical History Allergies/Adverse Reactions: Allergies Allergy/AdvReac Type Severity Reaction Status Date / Time Penicillins Allergy Swelling Verified 11/24/16 23:13 Home Medications: Ambulatory Orders Aspirin [Aspirin EC] 81 mg PO DAILY 11/25/16 Atorvastatin Ca [Lipitor] 40 mg PO DAILY 11/25/16 Dofetilide 250 mcg PO Q12H 11/25/16 Lisinopril 5 mg PO DAILY 11/25/16 Metoprolol Succinate [Toprol Xl -] 25 mg PO DAILY 11/25/16 Rivaroxaban [Xarelto -] 20 mg PO HS 11/25/16 Sulfamethoxazole/Trimethoprim [Bactrim *Ds*] 1 tab PO BID #20 tablet 11/25/16 Review of Systems - Review of Systems Able to Perform ROS?: Yes Comments:: 11/25/16 00:15 CONSTITUTIONAL: Absent: fever, no chills, no fatigue EYES: Absent: visual changes ENT: Absent: ear pain, no sore throat CARDIOVASCULAR: Absent: chest pain, no palpitations RESPIRATORY: Absent: cough, no SOB GI: Absent: abdominal pain, no nausea, no vomiting, no constipation, no diarrhea GENITOURINARY: +hematuria Absent: dysuria, no frequency MUSCULOSKELETAL: Absent: back pain, no arthralgia, no myalgia SKIN: Absent: rash NEURO: Absent: headache <Maria Eugenia Rose - Last Filed: 11/25/16 00:15> *Physical Exam - Vital Signs Last Vital Signs Temp Pulse Resp BP Pulse Ox 98.1 F 72 18 133/76 98 11/24/16 23:13 11/24/16 23:13 11/24/16 23:13 11/24/16 23:13 11/24/16 23:13 - Physical Exam Comments: 11/25/16 00:15 GENERAL: Well-appearing, well-nourished. No apparent distress. HEENT: Normocephalic, atraumatic. PERRL, EOM intact. CARDIOVASCULAR: Normal S1, S2. Regular rate and rhythm. PULMONARY: Clear to auscultation bilaterally. ABDOMEN: Soft, non-distended, non-tender. MUSCULOSKELETAL: +Mild right CVA tenderness EXTREMITIES: Normal ROM in all four extremities. No gross deformities. SKIN: Warm, dry. No rash NEUROLOGICAL: No focal neurological deficits. <Maria Eugenia Rose - Last Filed: 11/25/16 00:15> - Vital Signs Last Vital Signs Temp Pulse Resp BP Pulse Ox 98.1 F 72 18 133/76 98 11/24/16 23:13 11/24/16 23:13 11/24/16 23:13 11/24/16 23:13 11/24/16 23:13 <Darrion Wills - Last Filed: 11/25/16 19:46> ED Treatment Course - LABORATORY CBC & Chemistry Diagram: 11/25/16 00:30 11/25/16 00:30 <Darrino Wills - Last Filed: 11/25/16 19:46> Medical Decision Making - Medical Decision Making 11/25/16 02:21 Dr. Wills: The scribe's documentation has been prepared under my direction and personally reviewed by me in its entirery. I confirm that the note above accurately reflects all work, treatment, procedures, and medical decision making performed by me. patient found amount of RBCs in his urinalysis. Will start patient on an antibiotic. Advised for follow up with urology and primary care 11/25/16 19:44 Pt pharmacy called to change antibiotic. Pt will start taking doxycycline 100mg PO bid for 10 days. Pharmacist will change it. <Darrion Wills - Last Filed: 11/25/16 19:46> *DC/Admit/Observation/Transfer - Attestations Scribe Attestion: 11/25/16 00:16 Documentation prepared by Maria Eugenia Rose, acting as emergency medical technician/driver for Darrion Wills MD <Maria Eugenia Rose - Last Filed: 11/25/16 00:15> - Discharge Dispostion Admit: No <Darrion Wills - Last Filed: 11/25/16 19:46> Diagnosis at time of Disposition: Hematuria - Discharge Dispostion Disposition: HOME Condition at time of disposition: Stable - Prescriptions Prescriptions: Sulfamethoxazole/Trimethoprim [Bactrim *Ds*] 1 tab PO BID #20 tablet - Referrals Referrals: Chriss Urbina MD [Staff Physician] - Brooke Qunitanilla MD [Staff Physician] - - Patient Instructions Printed Discharge Instructions: DI for Hematuria
[2016-11-25 00:42] LABS: BASOPHIL 1.1 % (0-2.0); EOSINOPHIL 3.3 % (0-4.5); MCHC 33.5 g/dl (32.0-35.9); MEAN CELL VOLUME 98.6 fl (80-96); MEAN PLT VOLUME 8.2 fl (7.5-11.1); NEUTROPHILS 65.1 % (42.8-82.8); PLATELET COUNT 247 K/MM3 (134-434); RDW 14.7 % (11.9-15.9); WHITE BLOOD COUNT 9.3 K/mm3 (4.0-10.0)
[2016-11-25 00:57] LABS: INR 1.74 (0.82-1.09); PROTHROMBIN TIME (PATIENT) 19.4 SEC (9.98-11.88)
[2016-11-25 01:00] LABS: ACTIVATED PTT 41.5 SECONDS (26.9-34.4)
[2016-11-25 01:08] LABS: ALBUMIN 3.6 g/dl (3.4-5.0); ALK PHOS 77 U/L (45-117); ANION GAP 12 (8-16); BILIRUBIN,TOTAL 0.5 mg/dL (0.2-1.0); CALCIUM 9.3 mg/dL (8.5-10.1); CO2 28 mmol/L (21-32); COCKROFT - GAULT 122.68; CREATININE 0.8 mg/dL (0.7-1.3); GLUCOSE,RANDOM 97 mg/dL (74-106); SGOT/AST 30 U/L (15-37); SGPT/ALT 55 U/L (12-78); TOT PROT 6.4 g/dl (6.4-8.2)
[2016-11-25 01:46] LABS: URINE APPEARANCE SLCLOUDY; URINE BILIRUBIN NEGATIVE (NEGATIVE); URINE GLUCOSE (UA) NEGATIVE (NEGATIVE); URINE KETONE NEGATIVE (NEGATIVE); URINE LEUK ESTERASE NEGATIVE (NEGATIVE); URINE NITRITE NEGATIVE (NEGATIVE); URINE UROBILINOGEN NEGATIVE E.U./dl (0.2-1.0)
[2016-11-25 01:56] LABS: URINE BLOOD 3+ (NEGATIVE); URINE PROTEIN 2+ (NEGATIVE)
[2016-11-25 01:57] LABS: URINE COLOR DK YELLOW
[2016-11-25 01:59] LABS: URINE BACTERIA RARE /hpf (NONE SEEN); URINE MUCUS RARE; URINE RBC 2068 /hpf (0-3); URINE WBC 237 /hpf (3-5)
[2016-11-25] MEDS ORDERED: SULFAMETHOXAZOLE/TRIMETHOPRIM 800MG/160MG D.S. TABLET PO ONE (02:19)
[2016-11-25] MEDS ORDERED: SULFAMETHOXAZOLE/TRIMETHOPRIM 800MG/160MG D.S. TABLET ONE (02:53)
== END 2016-11-25 03:30 | disposition home or self-care (01) ==
LOC: JER 23:11
DX: R31.9 Hematuria, unspecified (principal); I49.9 Cardiac arrhythmia, unspecified; Z87.891 Personal history of nicotine dependence
CPT/HCPCS: 36415; 74176; 80053; 81003; 81015; 85025; 85610; 85730; 99283-25